=== PATIENT | female | born 1930 | race Caucasian/White ===

== ENCOUNTER 2017-03-24 15:10 | Emergency (ER) | payer MEDICARE, OTHER ==
[~2017-03-24 15:10] MED LIST: ADULT ASPIRIN81 MG PO; ADULT LOW DOSE81 MG PO; ALBUTEROL SULF8.5 GM IH; ALBUTEROL2.5 MG/0.1 IH; ALBUTEROL2.5 MG/3 M INH; AMILORIDE HCL5 M1 PO; AMLODIPINE BES2.5 MG PO; ANTI-ITCH28 GM TP; AUGMENTIN 875-1 EAC2 PO; AZITHROMYCIN250 M1 PO; BACITRACIN28.4 G2 TOP; BISAC-EVAC10 MG RC; BYSTOLIC10 M1 PO; BYSTOLIC5 M1 PO; CALCIUM500 M4 PO; COL-RITE100 M1 PO; COMBIVENT RESPIM4 G1 INH; COREG25 MG PO; COREG3.125 MG PO; COZAAR25 M1 PO; COZAAR25 MG PO; COZAAR50 M1 PO; CRESTOR5 MG PO; CRESTOR5 MG/TAB PO; CULTURELLE1 EAC1 PO; DEMADEX20 M1 PO; DEXAMETHASONE4 M1 PO; DILTIAZEM 24HR120 MG PO; DIPHENHYDRAMINE25 M3 PO; DOXY-LEMMON100 MG PO; DULCOLAX5 M1 PO; HYDRALAZINE HCL25 M1 PO; HYDROCHLOROTH12.5 MG PO; HYDROCORTISONE TOP; IBUPROFEN200 M1 PO; ISOPTO TEARS15 M1 OP; KEFLEX500 M4 PO; KLOR-CON M2020 MEQ PO; MACROBID 100 M100 M1 PO; MAGIC CUP PO; MAXZIDE1 TA2 PO; METFORMIN HCL500 MG PO; MILK OF MAGNESIA PO; MUCINEX600 M1 PO; NITROTAB0.4 MG SL; NORCO 5/325 TAB1 TAB PO; NORVASC10 M2 PO; NORVASC5 M2 PO; PACERONE200 M1 PO; PLAVIX75 MG PO; POLYETHYLENE GL17 G1 PO; POTASSIUM CHLO20 ME3 PO; PREDNISONE10 M1 PO; PREDNISONE20 M1 PO; PREDNISONE20 MG PO; PROVENTIL HFA6.7 G1 IH; SPIRIVA18 MC1 INH; STOOL SOFTENER100 M2 PO; SYNTHROID125 MC1 PO; SYNTHROID125 MCG PO; SYSTANE OP; TERAZOSIN HCL2 M1 PO; TORSEMIDE20 M2 PO; TUMS300 MG PO; TYLENOL325 M2 PO; VITAMIN D PO; VITAMIN D400 UNI4 PO; WELLBUTRIN SR150 M2 PO; WELLBUTRIN XL150 M1 PO; WELLBUTRIN100 M2 PO; [UNRECOGNIZED DRUG - OTHER] PO
[2017-03-24] MEDS ORDERED: COMBIVENT RESPIM4 G1 INH (15:17)
[2017-03-24 15:59] LABS: URINE APPEARANCE HAZY; URINE BILIRUBIN NEGATIVE (NEG); URINE BLOOD NEGATIVE (NEG); URINE COLOR YELLOW; URINE GLUCOSE (UA) NEGATIVE (NEG); URINE KETONE NEGATIVE (NEG); URINE LEUKOCYTE ESTERASE POSITIVE (NEG); URINE NITRITE NEGATIVE (NEG); URINE PROTEIN NEGATIVE (NEG)
[2017-03-24 16:10] LABS: BASO % 0.3 % (0-2); EOS % 5.5 % (0-7); EOSINOPHIL ABSOLUTE COUNT 0.4 tho/cmm (0.0-0.7); HCT-HEMATOCRIT 42.2 % (34.0-49.0); IMMATURE GRANULOCYTES ABSOLUTE 0.06 tho/cmm (0-0.03); IMMATURE GRANULOCYTES PERCENT 0.9 % (0-0.3); LYMPH % 28.8 % (20-45); MCH (MEAN CORPUSCULAR HGB) 31.6 pg (28.0-32.0); MCHC MEAN CORPUSCULAR HGB CONC 33.2 % (32.0-36.0); MCV (MEAN CELL VOLUME) 95.3 fl (82.0-96.0); MONO % 10.8 % (0-12); MONOCYTE ABSOLUTE COUNT 0.7 tho/cmm (0.0-1.2); NEUTROPHIL ABSOLUTE COUNT 3.6 tho/cmm (1.6-8.0); NEUTROPHIL-AUTOMATED 3.6 tho/cmm (1.6-8.0); NEUTROPHILS % 53.7 % (40-80); PLATELET COUNT 163 tho/cmm (150-450); RED BLOOD COUNT 4.43 mil/cmm (4.00-5.20); RED CELL DISTRIBUTION WIDTH 13.6 % (12.4-16.4); WHITE BLOOD COUNT 6.8 tho/cmm (4.0-10.0)
[2017-03-24 16:13] LABS: URINE BACTERIA 2+; URINE RBC 0 /[HPF] (0-5)
[2017-03-24] MEDS ORDERED: NITROGLYCERIN0.4 M2 SL (16:18)
[2017-03-24] MEDS ORDERED: PROVENTIL HFA6.7 G1 INH (16:18)
[2017-03-24] MEDS ORDERED: AMIODARONE HCL200 M1 PO (16:18)
[2017-03-24] MEDS ORDERED: ASPIRIN EC81 MG PO (16:18)
[2017-03-24] MEDS ORDERED: TYLENOL325 M2 PO (16:19)
[2017-03-24] MEDS ORDERED: ANTI-ITCH28 GM TP (16:19)
[2017-03-24] MEDS ORDERED: CALCIUM500 M4 PO (16:20)
[2017-03-24] MEDS ORDERED: SYSTANE 0.3-0.1 EACH EACH EYE (16:21)
[2017-03-24] MEDS ORDERED: ISOPTO TEARS15 M1 EACH EYE (16:22)
[2017-03-24] MEDS ORDERED: DULCOLAX5 M1 PO (16:22)
[2017-03-24] MEDS ORDERED: VITAMIN D3400 UNI4 PO (16:23)
[2017-03-24] MEDS ORDERED: MIRALAX17 G2 PO (16:23)
[2017-03-24] MEDS ORDERED: MILK OF MAGNESIA PO (16:23)
[2017-03-24] MEDS ORDERED: BENADRYL25 M3 PO (16:23)
[2017-03-24 16:28] LABS: ALB/GLOB RATIO 1.4 (0.8-2.0); ALKALINE PHOSPHATASE 111 U/L (33-138); ALT/SGPT 21 U/L (12-78); ANION GAP 14 mmol/L (0-20); AST/SGOT 19 U/L (10-40); BILIRUBIN,TOTAL 0.5 mg/dl (0-1.5); BLOOD UREA NITROGEN 26 mg/dl (6-24); CALCIUM 8.8 mg/dl (8.5-10.5); CARBON DIOXIDE-VENOUS 24 mmol/L (22-32); CHLORIDE 110 mmol/l (96-110); CREATININE 1.57 mg/dl (0.50-1.10); GLUCOSE 103 mg/dL (70-110); MAGNESIUM 2.3 mg/dl (1.8-2.6); POTASSIUM 4.2 mmol/L (3.7-5.1); SODIUM 144 mmol/L (135-145); eGFR VALUE FOR BLACK 34 mL/Min
[2017-03-24 16:32] LABS: TSH-THYROID STIMULATING HORM. 1.03 uIU/ml (0.40-3.80)
[2017-03-24] MEDS ORDERED: MACROBID 100 M100 M1 PO (16:50)
[2017-03-24] MEDS ORDERED: CEPHALEXIN500 M1 PO (16:55)
== END 2017-03-24 17:15 ==
LOC: EDMED 15:10
PROVIDERS: Emergency Medicine
DX: R41.0 Disorientation, unspecified (principal); F03.90 Unspecified dementia, unspecified severity, without behavioral disturbance, psychotic disturbance, mood disturbance, and anxiety; E11.22 Type 2 diabetes mellitus with diabetic chronic kidney disease; I12.9 Hypertensive chronic kidney disease with stage 1 through stage 4 chronic kidney disease, or unspecified chronic kidney disease; N18.9 Chronic kidney disease, unspecified; J44.9 Chronic obstructive pulmonary disease, unspecified; Z90.710 Acquired absence of both cervix and uterus; Z90.49 Acquired absence of other specified parts of digestive tract
CPT/HCPCS: J7030

== ENCOUNTER 2017-03-28 09:51 | Inpatient (IN) | payer MEDICARE, OTHER ==
[~2017-03-28 09:51] MED LIST changes: +AMIODARONE HCL200 M1 PO; +ASPIRIN EC81 MG PO; +BENADRYL25 M3 PO; +CEPHALEXIN500 M1 PO; +ISOPTO TEARS15 M1 EACH EYE; +MIRALAX17 G2 PO; +NITROGLYCERIN0.4 M2 SL; +PROVENTIL HFA6.7 G1 INH; +SYSTANE 0.3-0.1 EACH EACH EYE; +VITAMIN D3400 UNI4 PO
[2017-03-28] MEDS ORDERED: KEFLEX500 M4 PO (10:13)
[2017-03-28] MEDS ORDERED: MACROBID 100 M100 M1 PO (10:14)
[2017-03-28 12:23] LABS: BASO % 0.7 % (0-2); EOS % 9.3 % (0-7); EOSINOPHIL ABSOLUTE COUNT 0.6 tho/cmm (0.0-0.7); HCT-HEMATOCRIT 45.1 % (34.0-49.0); HGB-HEMOGLOBIN 14.8 gm/dl (12.0-15.5); IMMATURE GRANULOCYTES ABSOLUTE 0.04 tho/cmm (0-0.03); IMMATURE GRANULOCYTES PERCENT 0.7 % (0-0.3); LYMPH % 22.1 % (20-45); LYMPH ABSOLUTE COUNT 1.3 tho/cmm (0.8-4.5); MCH (MEAN CORPUSCULAR HGB) 31.3 pg (28.0-32.0); MCHC MEAN CORPUSCULAR HGB CONC 32.8 % (32.0-36.0); MCV (MEAN CELL VOLUME) 95.3 fl (82.0-96.0); MEAN PLATELET VOLUME 9.1 cmc (9.4-12.4); MONO % 11.6 % (0-12); MONOCYTE ABSOLUTE COUNT 0.7 tho/cmm (0.0-1.2); NEUTROPHIL ABSOLUTE COUNT 3.3 tho/cmm (1.6-8.0); NEUTROPHIL-AUTOMATED 3.3 tho/cmm (1.6-8.0); NEUTROPHILS % 55.6 % (40-80); PLATELET COUNT 142 tho/cmm (150-450); RED BLOOD COUNT 4.73 mil/cmm (4.00-5.20); RED CELL DISTRIBUTION WIDTH 13.1 % (12.4-16.4); WHITE BLOOD COUNT 5.9 tho/cmm (4.0-10.0)
[2017-03-28 12:38] LABS: ALB/GLOB RATIO 1.5 (0.8-2.0); ALBUMIN 4.2 g/dl (3.5-5.0); ALKALINE PHOSPHATASE 99 U/L (33-138); ALT/SGPT 28 U/L (12-78); ANION GAP 16 mmol/L (0-20); AST/SGOT 29 U/L (10-40); BILIRUBIN,TOTAL 0.7 mg/dl (0-1.5); BLOOD UREA NITROGEN 43 mg/dl (6-24); CALCIUM 9.1 mg/dl (8.5-10.5); CARBON DIOXIDE-VENOUS 26 mmol/L (22-32); CHLORIDE 104 mmol/l (96-110); CREATININE 1.85 mg/dl (0.50-1.10); GLUCOSE 112 mg/dL (70-110); SODIUM 142 mmol/L (135-145); eGFR VALUE FOR BLACK 28 mL/Min
[2017-03-28 12:39] LABS: URINE BILIRUBIN NEGATIVE (NEG); URINE BLOOD NEGATIVE (NEG); URINE GLUCOSE (UA) NEGATIVE (NEG); URINE KETONE MODERATE (NEG); URINE LEUKOCYTE ESTERASE POSITIVE (NEG); URINE NITRITE NEGATIVE (NEG); URINE PROTEIN SMALL (NEG); URINE SPECIFIC GRAVITY 1.015 (1.003-1.030)
[2017-03-28 12:41] LABS: URINE APPEARANCE CLEAR; URINE COLOR YELLOW
[2017-03-28 12:54] LABS: URINE MUCUS 1+
[2017-03-29 06:01] LABS: BASO % 0.6 % (0-2); EOS % 10.3 % (0-7); EOSINOPHIL ABSOLUTE COUNT 0.7 tho/cmm (0.0-0.7); HCT-HEMATOCRIT 41.8 % (34.0-49.0); HGB-HEMOGLOBIN 13.5 gm/dl (12.0-15.5); IMMATURE GRANULOCYTES ABSOLUTE 0.05 tho/cmm (0-0.03); IMMATURE GRANULOCYTES PERCENT 0.7 % (0-0.3); LYMPH % 17.3 % (20-45); LYMPH ABSOLUTE COUNT 1.2 tho/cmm (0.8-4.5); MCH (MEAN CORPUSCULAR HGB) 30.5 pg (28.0-32.0); MCHC MEAN CORPUSCULAR HGB CONC 32.3 % (32.0-36.0); MCV (MEAN CELL VOLUME) 94.6 fl (82.0-96.0); MEAN PLATELET VOLUME 9.2 cmc (9.4-12.4); MONO % 13.1 % (0-12); MONOCYTE ABSOLUTE COUNT 0.9 tho/cmm (0.0-1.2); NEUTROPHIL ABSOLUTE COUNT 4.1 tho/cmm (1.6-8.0); NEUTROPHIL-AUTOMATED 4.1 tho/cmm (1.6-8.0); PLATELET COUNT 133 tho/cmm (150-450); RED BLOOD COUNT 4.42 mil/cmm (4.00-5.20); WHITE BLOOD COUNT 7.1 tho/cmm (4.0-10.0)
[2017-03-29 06:20] LABS: ANION GAP 12 mmol/L (0-20); BLOOD UREA NITROGEN 38 mg/dl (6-24); CALCIUM 8.4 mg/dl (8.5-10.5); CARBON DIOXIDE-VENOUS 27 mmol/L (22-32); CHLORIDE 110 mmol/l (96-110); CREATININE 1.72 mg/dl (0.50-1.10); GLUCOSE 98 mg/dL (70-110); POTASSIUM 3.4 mmol/L (3.7-5.1); SODIUM 146 mmol/L (135-145); eGFR VALUE FOR BLACK 30 mL/Min
--- NOTE | 2017-03-29 19:20 | NUR ---
PATIENT BEGAN TO NOT FOLLOW DIRECTIONS AND WOULD NOT LISTEN TO STAFF INSTRUCTIONS. PATIENT STATED SHE WANTED TO GO HOME. NURSE HELPED PATIENT TO UNDERSTAND THAT SHE IS HERE TO GET HELP TO FEEL BETTER. PATIENT WOULD PUSH WALKER INTO NURSE STATING SHE WOULD KNOCK HER OVER IF SHE DID NOT LET HER GO HOME. PATIENT THEN GRABBED HER CANE AND BEGAN TO TRY AND HIT STAFF MEMEBERS WHEN STAFF WOULD TRY TO TAKE CANE AWAY FROM PATIENT WHILE SITTING. NURSE INITIATED THE MEGHNA CHAIR RESTRAINTS. NURSE CALLED DR. BURROUGHS TO VERIFY ORDER FOR RESTRAINTS. NURSE CONTACTED PATIENT'S DAUGHTER MADHURI SULLIVAN AND HER OTHER DAUGHTER WAYNE AND RECIEVED CONSENT FOR MEGHNA CHAIR RESTRAINTS AND SOFT WRIST RESTRAINTS WHEN PATIENT IS IN BED. BOTH DAUGHTERS GAVE CONSENT. DAUGHTERS QUESTIONS WERE ANSWERED AND INFORMATION ABOUT THE RESTRAINTS WERE ADDRESSED WITH DAUGHTERS ON THE PHONE. PREVIOUSLY PATIENT PULLED OUT PIV AND CONTINUED TO UNHOOK AND PULL AT NEW IV LINES. PATIENT IS A FALL RISK.
[2017-03-30 11:10] LABS: HGB-HEMOGLOBIN 12.4 gm/dl (12.0-15.5); PLATELET COUNT 148 tho/cmm (150-450)
[2017-03-31 06:45] LABS: BASO % 0.9 % (0-2); BASO ABSOLUTE COUNT 0.1 tho/cmm (0.0-0.2); EOSINOPHIL ABSOLUTE COUNT 0.5 tho/cmm (0.0-0.7); HCT-HEMATOCRIT 39.7 % (34.0-49.0); IMMATURE GRANULOCYTES ABSOLUTE 0.04 tho/cmm (0-0.03); IMMATURE GRANULOCYTES PERCENT 0.5 % (0-0.3); LYMPH % 27.2 % (20-45); LYMPH ABSOLUTE COUNT 2.1 tho/cmm (0.8-4.5); MCHC MEAN CORPUSCULAR HGB CONC 32.7 % (32.0-36.0); MCV (MEAN CELL VOLUME) 94.7 fl (82.0-96.0); MEAN PLATELET VOLUME 9.4 cmc (9.4-12.4); MONO % 11.2 % (0-12); MONOCYTE ABSOLUTE COUNT 0.9 tho/cmm (0.0-1.2); NEUTROPHIL ABSOLUTE COUNT 4.1 tho/cmm (1.6-8.0); NEUTROPHIL-AUTOMATED 4.1 tho/cmm (1.6-8.0); NEUTROPHILS % 53.2 % (40-80); PLATELET COUNT 153 tho/cmm (150-450); RED BLOOD COUNT 4.19 mil/cmm (4.00-5.20); RED CELL DISTRIBUTION WIDTH 13.2 % (12.4-16.4); WHITE BLOOD COUNT 7.7 tho/cmm (4.0-10.0)
[2017-03-31 06:55] LABS: ANION GAP 12 mmol/L (0-20); BLOOD UREA NITROGEN 17 mg/dl (6-24); CALCIUM 8.5 mg/dl (8.5-10.5); CARBON DIOXIDE-VENOUS 27 mmol/L (22-32); CHLORIDE 107 mmol/l (96-110); CREATININE 1.07 mg/dl (0.50-1.10); GLUCOSE 109 mg/dL (70-110); MAGNESIUM 2.3 mg/dl (1.8-2.6); POTASSIUM 3.4 mmol/L (3.7-5.1); SODIUM 143 mmol/L (135-145); eGFR VALUE FOR BLACK 54 mL/Min
[2017-04-01 05:49] LABS: BASO % 0.2 % (0-2); EOS % 6.1 % (0-7); EOSINOPHIL ABSOLUTE COUNT 0.4 tho/cmm (0.0-0.7); HCT-HEMATOCRIT 36.8 % (34.0-49.0); IMMATURE GRANULOCYTES ABSOLUTE 0.05 tho/cmm (0-0.03); IMMATURE GRANULOCYTES PERCENT 0.8 % (0-0.3); LYMPH % 17.6 % (20-45); LYMPH ABSOLUTE COUNT 1.2 tho/cmm (0.8-4.5); MCH (MEAN CORPUSCULAR HGB) 30.7 pg (28.0-32.0); MCHC MEAN CORPUSCULAR HGB CONC 32.6 % (32.0-36.0); MCV (MEAN CELL VOLUME) 94.1 fl (82.0-96.0); MEAN PLATELET VOLUME 9.2 cmc (9.4-12.4); MONO % 8.3 % (0-12); MONOCYTE ABSOLUTE COUNT 0.5 tho/cmm (0.0-1.2); NEUTROPHIL ABSOLUTE COUNT 4.4 tho/cmm (1.6-8.0); NEUTROPHIL-AUTOMATED 4.4 tho/cmm (1.6-8.0); PLATELET COUNT 144 tho/cmm (150-450); RED BLOOD COUNT 3.91 mil/cmm (4.00-5.20); RED CELL DISTRIBUTION WIDTH 13.4 % (12.4-16.4); WHITE BLOOD COUNT 6.5 tho/cmm (4.0-10.0)
[2017-04-01 06:09] LABS: ANION GAP 12 mmol/L (0-20); BLOOD UREA NITROGEN 21 mg/dl (6-24); CALCIUM 8.3 mg/dl (8.5-10.5); CARBON DIOXIDE-VENOUS 24 mmol/L (22-32); CHLORIDE 110 mmol/l (96-110); CREATININE 1.06 mg/dl (0.50-1.10); GLUCOSE 116 mg/dL (70-110); POTASSIUM 3.7 mmol/L (3.7-5.1); SODIUM 142 mmol/L (135-145); eGFR VALUE FOR BLACK 54 mL/Min
[2017-04-01] MEDS ORDERED: AUGMENTIN 500-1 EAC2 PO (12:28)
== END 2017-04-02 16:05 | DRG 689 ==
LOC: EDMED 09:51 → EMR2 12:31 → 5WE 14:00
PROVIDERS: Emergency Medicine; Internal Medicine; ADMIT Hospitalist
DX: N39.0 Urinary tract infection, site not specified (principal); G93.41 Metabolic encephalopathy; N17.9 Acute kidney failure, unspecified; E86.0 Dehydration; F03.90 Unspecified dementia, unspecified severity, without behavioral disturbance, psychotic disturbance, mood disturbance, and anxiety; I12.9 Hypertensive chronic kidney disease with stage 1 through stage 4 chronic kidney disease, or unspecified chronic kidney disease; E11.22 Type 2 diabetes mellitus with diabetic chronic kidney disease; N18.3 Chronic kidney disease, stage 3 (moderate); E87.6 Hypokalemia; R32 Unspecified urinary incontinence; J44.9 Chronic obstructive pulmonary disease, unspecified; I50.9 Heart failure, unspecified; E03.9 Hypothyroidism, unspecified; B96.20 Unspecified Escherichia coli [E. coli] as the cause of diseases classified elsewhere; B96.5 Pseudomonas (aeruginosa) (mallei) (pseudomallei) as the cause of diseases classified elsewhere
CPT/HCPCS: J1650; J2543; J7030

== ENCOUNTER 2017-04-20 15:26 | Inpatient (IN) | payer MEDICARE, OTHER ==
[~2017-04-20 15:26] MED LIST changes: +AUGMENTIN 500-1 EAC2 PO
[2017-04-20 15:49] LABS: ABG CO2 ARTERIAL 29 mmol/L (21-27); ARTERIAL BLD GAS O2 SATURATION 87 % (95-98); ARTERIAL BLOOD GAS PCO2 39 mmHg (32-45); ARTERIAL PO2 53 mmHg (70-100); BICARBONATE 27 mmol/L (21-28); BLOOD GAS BASE EXCESS 4 mM/L (-/+3); PH 7.46 Units (7.35-7.45)
[2017-04-20] MEDS ORDERED: CITRATE OF MAG300 M1 PO (15:54)
[2017-04-20] MEDS ORDERED: MACROBID 100 M100 M1 PO (15:55)
[2017-04-20] MEDS ORDERED: SPIRIVA18 MC1 INH (15:55)
[2017-04-20] MEDS ORDERED: SYNTHROID125 MC1 PO (15:55)
[2017-04-20] MEDS ORDERED: ASPIRIN EC81 MG PO (15:56)
[2017-04-20] MEDS ORDERED: DEMADEX20 M1 PO (15:56)
[2017-04-20] MEDS ORDERED: BUPROPION XL150 M1 PO (15:56)
[2017-04-20] MEDS ORDERED: POLYETHYLENE GL17 G1 PO (15:56)
[2017-04-20] MEDS ORDERED: NORVASC10 M2 PO (15:56)
[2017-04-20] MEDS ORDERED: POTASSIUM CHLO10 ME2 PO (15:57)
[2017-04-20] MEDS ORDERED: BYSTOLIC5 M1 PO (15:57)
[2017-04-20] MEDS ORDERED: VITAMIN D3400 UNI5 PO (15:57)
[2017-04-20] MEDS ORDERED: COMBIVENT RESPIM4 G1 INH (15:57)
[2017-04-20] MEDS ORDERED: ROSUVASTATIN CAL5 MG PO (15:58)
[2017-04-20] MEDS ORDERED: MAPAP325 M2 PO (15:58)
[2017-04-20] MEDS ORDERED: PROVENTIL HFA6.7 G1 INH (15:58)
[2017-04-20] MEDS ORDERED: CALCIUM500 M4 PO (15:59)
[2017-04-20] MEDS ORDERED: NITROGLYCERIN0.4 M2 SL (15:59)
[2017-04-20] MEDS ORDERED: MILK OF MAGNESIA PO (16:00)
[2017-04-20] MEDS ORDERED: SYSTANE 0.3-0.415 ML OP (16:00)
[2017-04-20] MEDS ORDERED: BISACODYL5 M1 PO (16:00)
[2017-04-20] MEDS ORDERED: ALBUTEROL2.5 MG/3 M INH (16:01)
[2017-04-20] MEDS ORDERED: BANOPHEN25 M1 PO (16:01)
[2017-04-20] MEDS ORDERED: ARTIFICIAL TEAR1512 OP (16:01)
[2017-04-20] MEDS ORDERED: BISCOLAX10 MG PR (16:02)
[2017-04-20] MEDS ORDERED: ENEMA133 M4 PR (16:02)
[2017-04-20] MEDS ORDERED: ANTI-ITCH28 GM TP (16:03)
[2017-04-20 16:10] LABS: BASO % 0.1 % (0-2); EOS % 1.8 % (0-7); EOSINOPHIL ABSOLUTE COUNT 0.2 tho/cmm (0.0-0.7); HCT-HEMATOCRIT 41.9 % (34.0-49.0); HGB-HEMOGLOBIN 13.6 gm/dl (12.0-15.5); IMMATURE GRANULOCYTES ABSOLUTE 0.04 tho/cmm (0-0.03); IMMATURE GRANULOCYTES PERCENT 0.3 % (0-0.3); LYMPH % 3.7 % (20-45); LYMPH ABSOLUTE COUNT 0.5 tho/cmm (0.8-4.5); MCH (MEAN CORPUSCULAR HGB) 30.8 pg (28.0-32.0); MCHC MEAN CORPUSCULAR HGB CONC 32.5 % (32.0-36.0); MEAN PLATELET VOLUME 9.1 cmc (9.4-12.4); MONOCYTE ABSOLUTE COUNT 0.4 tho/cmm (0.0-1.2); NEUTROPHIL ABSOLUTE COUNT 11.9 tho/cmm (1.6-8.0); NEUTROPHIL-AUTOMATED 11.9 tho/cmm (1.6-8.0); NEUTROPHILS % 91.1 % (40-80); PLATELET COUNT 173 tho/cmm (150-450); RED BLOOD COUNT 4.41 mil/cmm (4.00-5.20); RED CELL DISTRIBUTION WIDTH 12.7 % (12.4-16.4); WHITE BLOOD COUNT 13.1 tho/cmm (4.0-10.0)
[2017-04-20 16:11] LABS: ALB/GLOB RATIO 1.3 (0.8-2.0); ALBUMIN 3.8 g/dl (3.5-5.0); ALKALINE PHOSPHATASE 106 U/L (33-138); ALT/SGPT 17 U/L (12-78); ANION GAP 14 mmol/L (0-20); AST/SGOT 17 U/L (10-40); BILIRUBIN,TOTAL 0.7 mg/dl (0-1.5); BLOOD UREA NITROGEN 24 mg/dl (6-24); C-REACTIVE PROTEIN 0.7 mg/dl (0-0.9); CALCIUM 8.7 mg/dl (8.5-10.5); CARBON DIOXIDE-VENOUS 27 mmol/L (22-32); CHLORIDE 99 mmol/l (96-110); CREATININE 1.59 mg/dl (0.50-1.10); GLUCOSE 156 mg/dL (70-110); POTASSIUM 3.7 mmol/L (3.7-5.1); SODIUM 136 mmol/L (135-145); eGFR VALUE FOR BLACK 33 mL/Min
[2017-04-20 16:37] LABS: URINE BILIRUBIN NEGATIVE (NEG); URINE BLOOD NEGATIVE (NEG); URINE GLUCOSE (UA) NEGATIVE (NEG); URINE KETONE NEGATIVE (NEG); URINE LEUKOCYTE ESTERASE POSITIVE (NEG); URINE NITRITE NEGATIVE (NEG); URINE PROTEIN NEGATIVE (NEG)
[2017-04-20 16:37] LABS: INR 0.9 INR (0.9-1.1)
[2017-04-20 16:38] LABS: PROCALCITONIN 0.06 ng/ml (0.05-0.09)
[2017-04-20 16:43] LABS: URINE APPEARANCE HAZY; URINE COLOR YELLOW
[2017-04-20 16:45] LABS: URINE BACTERIA 3+; URINE EPITHELIAL CELLS RARE /[HPF] (0-10); URINE RBC 0 /[HPF] (0-5)
[2017-04-21 07:14] LABS: BASO % 0.2 % (0-2); BLOOD UREA NITROGEN 21 mg/dl (6-24); CALCIUM 7.8 mg/dl (8.5-10.5); CARBON DIOXIDE-VENOUS 27 mmol/L (22-32); CHLORIDE 103 mmol/l (96-110); CREATININE 1.46 mg/dl (0.50-1.10); EOS % 3.6 % (0-7); EOSINOPHIL ABSOLUTE COUNT 0.4 tho/cmm (0.0-0.7); GLUCOSE 152 mg/dL (70-110); HCT-HEMATOCRIT 36.9 % (34.0-49.0); HGB-HEMOGLOBIN 11.8 gm/dl (12.0-15.5); IMMATURE GRANULOCYTES ABSOLUTE 0.06 tho/cmm (0-0.03); IMMATURE GRANULOCYTES PERCENT 0.5 % (0-0.3); LYMPH % 7.7 % (20-45); MCH (MEAN CORPUSCULAR HGB) 30.2 pg (28.0-32.0); MCV (MEAN CELL VOLUME) 94.4 fl (82.0-96.0); MEAN PLATELET VOLUME 9.3 cmc (9.4-12.4); MONO % 5.2 % (0-12); MONOCYTE ABSOLUTE COUNT 0.6 tho/cmm (0.0-1.2); NEUTROPHIL ABSOLUTE COUNT 10.2 tho/cmm (1.6-8.0); NEUTROPHIL-AUTOMATED 10.2 tho/cmm (1.6-8.0); NEUTROPHILS % 82.8 % (40-80); PLATELET COUNT 147 tho/cmm (150-450); RED BLOOD COUNT 3.91 mil/cmm (4.00-5.20); RED CELL DISTRIBUTION WIDTH 12.9 % (12.4-16.4); SODIUM 138 mmol/L (135-145); WHITE BLOOD COUNT 12.3 tho/cmm (4.0-10.0); eGFR VALUE FOR BLACK 37 mL/Min
[2017-04-21 07:28] LABS: ANION GAP 11 mmol/L (0-20)
[2017-04-22 06:26] LABS: HCT-HEMATOCRIT 34.3 % (34.0-49.0); HGB-HEMOGLOBIN 11.1 gm/dl (12.0-15.5); IMMATURE GRANULOCYTES PERCENT 1.2 % (0-0.3); MCH (MEAN CORPUSCULAR HGB) 30.3 pg (28.0-32.0); MCHC MEAN CORPUSCULAR HGB CONC 32.4 % (32.0-36.0); MCV (MEAN CELL VOLUME) 93.7 fl (82.0-96.0); MEAN PLATELET VOLUME 9.2 cmc (9.4-12.4); NEUTROPHIL-AUTOMATED 3.5 tho/cmm (1.6-8.0); NEUTROPHILS % 50.7 % (40-80); PLATELET COUNT 147 tho/cmm (150-450); RED BLOOD COUNT 3.66 mil/cmm (4.00-5.20); WHITE BLOOD COUNT 6.9 tho/cmm (4.0-10.0)
[2017-04-22 06:28] LABS: BASO % 0.3 % (0-2); EOS % 20.8 % (0-7); EOSINOPHIL ABSOLUTE COUNT 1.4 tho/cmm (0.0-0.7); IMMATURE GRANULOCYTES ABSOLUTE 0.08 tho/cmm (0-0.03); LYMPH ABSOLUTE COUNT 1.3 tho/cmm (0.8-4.5); MONOCYTE ABSOLUTE COUNT 0.6 tho/cmm (0.0-1.2); NEUTROPHIL ABSOLUTE COUNT 3.5 tho/cmm (1.6-8.0)
[2017-04-22 06:39] LABS: ALBUMIN 2.7 g/dl (3.5-5.0); ANION GAP 12 mmol/L (0-20); BLOOD UREA NITROGEN 21 mg/dl (6-24); C-REACTIVE PROTEIN 8.5 mg/dl (0-0.9); CARBON DIOXIDE-VENOUS 26 mmol/L (22-32); CHLORIDE 109 mmol/l (96-110); CREATININE 1.38 mg/dl (0.50-1.10); GLUCOSE 98 mg/dL (70-110); PHOSPHOROUS 2.8 mg/dl (2.5-4.9); POTASSIUM 3.2 mmol/L (3.7-5.1); SODIUM 144 mmol/L (135-145); eGFR VALUE FOR BLACK 39 mL/Min
[2017-04-22 07:15] LABS: PROCALCITONIN 0.22 ng/ml (0.05-0.09)
[2017-04-23 05:23] LABS: BASO % 0.6 % (0-2); EOSINOPHIL ABSOLUTE COUNT 0.8 tho/cmm (0.0-0.7); HCT-HEMATOCRIT 35.7 % (34.0-49.0); HGB-HEMOGLOBIN 11.5 gm/dl (12.0-15.5); IMMATURE GRANULOCYTES ABSOLUTE 0.06 tho/cmm (0-0.03); IMMATURE GRANULOCYTES PERCENT 1.1 % (0-0.3); LYMPH % 27.4 % (20-45); LYMPH ABSOLUTE COUNT 1.4 tho/cmm (0.8-4.5); MCHC MEAN CORPUSCULAR HGB CONC 32.2 % (32.0-36.0); MCV (MEAN CELL VOLUME) 93.2 fl (82.0-96.0); MONOCYTE ABSOLUTE COUNT 0.6 tho/cmm (0.0-1.2); NEUTROPHIL ABSOLUTE COUNT 2.3 tho/cmm (1.6-8.0); NEUTROPHIL-AUTOMATED 2.3 tho/cmm (1.6-8.0); NEUTROPHILS % 44.1 % (40-80); PLATELET COUNT 161 tho/cmm (150-450); RED BLOOD COUNT 3.83 mil/cmm (4.00-5.20); WHITE BLOOD COUNT 5.3 tho/cmm (4.0-10.0)
[2017-04-23 05:29] LABS: EOS % 15.8 % (0-7)
[2017-04-23 05:37] LABS: ANION GAP 11 mmol/L (0-20); BLOOD UREA NITROGEN 20 mg/dl (6-24); CALCIUM 8.2 mg/dl (8.5-10.5); CARBON DIOXIDE-VENOUS 27 mmol/L (22-32); CHLORIDE 110 mmol/l (96-110); GLUCOSE 91 mg/dL (70-110); POTASSIUM 3.3 mmol/L (3.7-5.1); SODIUM 145 mmol/L (135-145); eGFR VALUE FOR BLACK 36 mL/Min
[2017-04-24] MEDS ORDERED: BACTRIM DS TAB1 EAC2 PO (11:19)
== END 2017-04-24 13:00 | DRG 871 ==
LOC: EDMED 15:26 → EMR2 18:20 → PCUA 23:12
PROVIDERS: Emergency Medicine; Internal Medicine Infectious Disease; ADMIT Family Medicine
DX: A41.9 Sepsis, unspecified organism (principal); J96.91 Respiratory failure, unspecified with hypoxia; L03.116 Cellulitis of left lower limb; J44.1 Chronic obstructive pulmonary disease with (acute) exacerbation; I13.0 Hypertensive heart and chronic kidney disease with heart failure and stage 1 through stage 4 chronic kidney disease, or unspecified chronic kidney disease; E11.22 Type 2 diabetes mellitus with diabetic chronic kidney disease; I71.2 Thoracic aortic aneurysm, without rupture; I50.9 Heart failure, unspecified; R65.20 Severe sepsis without septic shock; I87.2 Venous insufficiency (chronic) (peripheral); E78.5 Hyperlipidemia, unspecified; I25.10 Atherosclerotic heart disease of native coronary artery without angina pectoris; I48.0 Paroxysmal atrial fibrillation; N18.9 Chronic kidney disease, unspecified; Z95.5 Presence of coronary angioplasty implant and graft; Z87.891 Personal history of nicotine dependence; Z79.82 Long term (current) use of aspirin; Z79.51 Long term (current) use of inhaled steroids; Z79.899 Other long term (current) drug therapy; Z66 Do not resuscitate
CPT/HCPCS: J1630; J1650; J1815; J1940; J2543; J3370; J7030; P9612